=== PATIENT | female | born 1995 | race African-American/Black ===

== ENCOUNTER 2020-09-06 15:36 | Outpatient (REF) | payer OTHER, SELFPAY ==
[2020-09-07 19:02] LABS: C. trachomatis RNA TMA NOT DETECTED (NOT DETECTED); N. gonorrhoeae RNA TMA NOT DETECTED (NOT DETECTED)
== END 2020-09-06 15:37 | disposition home or self-care (01) ==
LOC: HO.LAB 15:36
PROVIDERS: PCP Internal Medicine; Visit Provider Advanced Practice Midwife
DX: Z01.419 Encounter for gynecological examination (general) (routine) without abnormal findings (principal); Z20.2 Contact with and (suspected) exposure to infections with a predominantly sexual mode of transmission
CPT/HCPCS: 36415; 87491; 87591

== ENCOUNTER 2020-10-25 11:46 | Outpatient (REF) | payer OTHER, SELFPAY | END 2020-10-25 11:47 | disposition home or self-care (01) | LOC: HO.LAB 11:46 | PROVIDERS: Visit Provider Internal Medicine | DX: Z20.822 Contact with and (suspected) exposure to COVID-19 (principal) | CPT/HCPCS: 36415; C9803; U0003; U0005 ==

== ENCOUNTER 2020-12-01 15:49 | Outpatient (REF) | payer OTHER, SELFPAY | END 2020-12-01 15:50 | disposition home or self-care (01) | LOC: HO.LAB 15:49 | PROVIDERS: Visit Provider Internal Medicine | DX: Z20.822 Contact with and (suspected) exposure to COVID-19 (principal) | CPT/HCPCS: C9803; U0003; U0005 ==

== ENCOUNTER 2021-10-30 17:18 | Emergency (ER) | payer OTHER, SELFPAY ==
--- NOTE | ~2021-10-30 | XR_ITS ---
EXAMINATION: LEFT KNEE AND RIGHT ANKLE CLINICAL INFORMATION: Status post fall left knee COMPARISON: None TECHNIQUE: 3 views right ankle and 4 views left knee FINDINGS: LEFT KNEE: There is no visible acute fracture, dislocation or subluxation seen. There is no abnormal joint effusion, loose bodies or bony erosive changes. RIGHT ANKLE: There is no visible acute fracture, dislocation or subluxation. There is minimal lateral malleolar soft tissue swelling suggestive of ligamentous injury. XR/XR knee LT 4V IMPRESSION: Unremarkable left knee exam. Unremarkable right ankle exam.
--- NOTE | ~2021-10-30 | CT_ITS ---
EXAMINATION: CT BRAIN, CT FACIAL BONES AND CT CERVICAL SPINE WITHOUT CONTRAST. CLINICAL INFORMATION: Status post fall with head,neck and dental injury. COMPARISON: None TECHNIQUE: 5 mm thin axial and reformatted 2 mm thin sagittal and coronal images of brain were obtained. Axial 3 mm thin and reformatted 1.5 mm thin sagittal and coronal images of facial bones were obtained. Subsequently axial 3 mm thin and reformatted 2 mm thin sagittal and coronal images of cervical spine were obtained. DLP 1209 mGy/cm. FINDINGS: Brain: There is no acute intra-axial, extra-axial bleed, masses or midline shift. There is no acute infarction evolution. The lateral ventricles are symmetrical in size and configuration without enlargement. Bone windows reveal no calvarial abnormality. There is no scalp soft tissue abnormality. Bilateral paranasal sinuses and mastoid air cells are well-aerated except for minimal mucoperiosteal thickening left maxillary sinus.. Facial bones: There is no visible maxillofacial, nasal or mandibular fracture. The bony sinus sinus hodgson are intact. There is no mucoperiosteal thickening or air-fluid levels. The bony orbits are intact no soft tissue hematoma seen. Bilateral TM joints are symmetrical and normal. Cervical spine: On sagittal reconstructed images there is normal cervical lordosis. The vertebral heights, alignment and disc heights are normal. The craniovertebral junction and the C1-C2 alignment is normal. There is no visible acute fracture, dislocation or subluxation seen. The prevertebral and paravertebral soft tissues are normal. The lung apices are clear. CT/CT cervical spine wo con IMPRESSION: No acute intracranial process seen. There is no acute maxillofacial, nasal or mandibular fracture. There is minimal mucoperiosteal thickening right maxillary sinus. There is no acute fracture, dislocation or subluxation of cervical spine.
--- NOTE | ~2021-10-30 | XR_ITS ---
EXAMINATION: LEFT KNEE AND RIGHT ANKLE CLINICAL INFORMATION: Status post fall left knee COMPARISON: None TECHNIQUE: 3 views right ankle and 4 views left knee FINDINGS: LEFT KNEE: There is no visible acute fracture, dislocation or subluxation seen. There is no abnormal joint effusion, loose bodies or bony erosive changes. RIGHT ANKLE: There is no visible acute fracture, dislocation or subluxation. There is minimal lateral malleolar soft tissue swelling suggestive of ligamentous injury. XR/XR ankle RT min 3V IMPRESSION: Unremarkable left knee exam. Unremarkable right ankle exam.
[2021-10-30 19:19] VITALS: BP 137/84; PULSE 65; RESP 18; TEMP 37.2; O2SAT 99; BMI 22.1
[2021-10-30] MEDS: Acetaminophen 325 MG TABLET 975 MG PO (20:24)
[2021-10-30] MEDS: Diphth,Pertus(ACell),Tet Adult 0.5 ML SYRINGE IM (20:31)
[2021-10-30 20:34] LABS: Appearance Urine HAZY; Color Urine DK YELLOW; Glucose Urine UA NEG (NEG); Leukocyte Esterase Urine NEG (NEG); Nitrite Urine NEG (NEG); UACC Culture Trigger NO; Urine Blood 1+ (NEG); Urine Ketones 40 MG/DL (NEG); Urine Protein TRACE MG/DL (NEG-TRACE)
[2021-10-30 20:35] LABS: UPreg QC Valid YES; Urine Pregnancy NEGATIVE (NEGATIVE)
[2021-10-30 20:46] LABS: Mucus Urine 4+ /LPF; Squamous Epithelial Cell Urine 3+ /LPF; WBC Urine 0-2 /HPF (0-4)
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
[2021-10-30] MEDS: oxyCODONE HCl Immed Release 5 MG TABLET PO (21:38)
== END 2021-10-30 21:50 | disposition home or self-care (01) ==
PROVIDERS: Emergency Provider Internal Medicine
DX: S06.0X1A Concussion with loss of consciousness of 30 minutes or less, initial encounter (principal); S00.511A Abrasion of lip, initial encounter; S93.401A Sprain of unspecified ligament of right ankle, initial encounter; S83.91XA Sprain of unspecified site of right knee, initial encounter; W01.0XXA Fall on same level from slipping, tripping and stumbling without subsequent striking against object, initial encounter; K08.89 Other specified disorders of teeth and supporting structures; Y93.89 Activity, other specified; Y92.89 Other specified places as the place of occurrence of the external cause; Y99.9 Unspecified external cause status
CPT/HCPCS: 70450; 70486; 72125; 73564; 73610; 81001; 81025; 90471; 90715; 99284